=== PATIENT | female | born 1970 | race Caucasian/White ===

== ENCOUNTER → 2016-12-28 09:51 | Outpatient (CLI) | payer OTHER | END | disposition home or self-care (01) | LOC: D.CT 09:30 | DX: R07.9 Chest pain, unspecified (principal) ==

== ENCOUNTER → 2018-07-15 07:19 | Outpatient (CLI) | payer BC | END | disposition home or self-care (01) | LOC: D.NM 07:19 | PROVIDERS: ATTEND Family Medicine | DX: E04.1 Nontoxic single thyroid nodule (principal) ==